=== PATIENT | male | born 1965 | race Caucasian/White ===

== ENCOUNTER 2021-10-20 01:47 | Emergency (ER) | payer MEDICAID ==
[~2021-10-20] VITALS: Ht 175.3 cm; Wt 75.0 kg
[~2021-10-20 01:47] MED LIST: CLIN150C8 PO
[2021-10-20 02:05] VITALS: BP 161/94
== END 2021-10-20 04:21 | disposition home or self-care (01) ==
LOC: ER 01:48
DX: B34.9 Viral infection, unspecified (principal); Z88.0 Allergy status to penicillin; Z79.899 Other long term (current) drug therapy; Z20.822 Contact with and (suspected) exposure to COVID-19
CPT/HCPCS: 71045; 87635; 99284; C9803